=== PATIENT | female | born 1955 | race Two or more races ===

== ENCOUNTER 2020-03-28 14:50 | Outpatient (CLI) | payer OTHER ==
[~2020-03-28 14:50] MED LIST: CARDIZEM30 MG; LISINOPRIL20 MG; PEPCID40 MG PO; PHENERGAN25 MG PO
== END 2020-03-28 15:09 | disposition home or self-care (01) ==
LOC: MAMO-SONO 14:50
PROVIDERS: ATTEND Obstetrics & Gynecology Gynecology
DX: Z12.31 Encounter for screening mammogram for malignant neoplasm of breast (principal); N60.19 Diffuse cystic mastopathy of unspecified breast; N64.4 Mastodynia; N64.59 Other signs and symptoms in breast

== ENCOUNTER → 2020-12-29 | Emergency (ER) | payer OTHER ==
[~2020-12-29] VITALS: Ht 167.6 cm; Wt 80.7 kg
[~2020-12-29] MED LIST changes: +VALSARTAN160 MG PO
== END | disposition home or self-care (01) ==
LOC: ER 12:15
DX: R21 Rash and other nonspecific skin eruption (principal); T78.49XA Other allergy, initial encounter; X58.XXXA Exposure to other specified factors, initial encounter

== ENCOUNTER 2021-08-27 13:42 | Emergency (ER) | payer OTHER ==
[~2021-08-27] VITALS: Ht 167.6 cm; Wt 77.1 kg
== END 2021-08-27 20:34 | disposition home or self-care (01) ==
LOC: ER 13:42
DX: R53.83 Other fatigue (principal); I10 Essential (primary) hypertension; Z20.822 Contact with and (suspected) exposure to COVID-19

== ENCOUNTER 2021-08-30 19:32 | Emergency (ER) | payer OTHER ==
[~2021-08-30] VITALS: Ht 167.6 cm; Wt 75.3 kg
[2021-08-30] MEDS ORDERED: HYDROCHLOROTH12.5 MG PO (20:08)
== END 2021-08-30 20:30 | disposition home or self-care (01) ==
LOC: ER 19:32
DX: R10.13 Epigastric pain (principal)

== ENCOUNTER 2021-10-25 22:45 | Emergency (ER) | payer OTHER ==
[~2021-10-25] VITALS: Ht 167.6 cm; Wt 77.1 kg
[~2021-10-25 22:45] MED LIST changes: +HYDROCHLOROTH12.5 MG PO
== END 2021-10-25 23:37 | disposition home or self-care (01) ==
LOC: ER 22:45
DX: U09.9 Post COVID-19 condition, unspecified (principal); F41.9 Anxiety disorder, unspecified; Z88.5 Allergy status to narcotic agent; Z88.2 Allergy status to sulfonamides; Z88.8 Allergy status to other drugs, medicaments and biological substances; I10 Essential (primary) hypertension

== ENCOUNTER 2022-08-07 10:42 | Outpatient (CLI) | payer OTHER ==
[~2022-08-07 10:42] MED LIST changes: +TOPROL XL25 M1
== END 2022-08-07 10:57 | disposition home or self-care (01) ==
LOC: MAMO-SONO 10:42
PROVIDERS: ATTEND Obstetrics & Gynecology Gynecology
DX: R92.2 Inconclusive mammogram (principal); Z80.3 Family history of malignant neoplasm of breast; Z78.0 Asymptomatic menopausal state

== ENCOUNTER 2022-10-02 13:40 | Outpatient (CLI) | payer OTHER | END 2022-10-02 13:48 | disposition home or self-care (01) | LOC: RAD 13:40 | DX: M54.2 Cervicalgia (principal) ==

== ENCOUNTER 2024-09-19 05:55 | Emergency (ER) | payer OTHER ==
[~2024-09-19] VITALS: Ht 167.6 cm; Wt 81.6 kg
[2024-09-19] MEDS ORDERED: LOSARTAN/HYDROCHLOROTHIAZIDE 1 TAB TABLET PO ONE (08:45)
[2024-09-19] MEDS ORDERED: ACETAMINOPHEN 500 MG GEL..CAP PO ONE ×2 (09:00→09:05)
== END 2024-09-19 12:49 | disposition home or self-care (01) ==
LOC: ER 05:57
DX: S09.8XXA Other specified injuries of head, initial encounter (principal); W19.XXXA Unspecified fall, initial encounter; Y93.89 Activity, other specified; Y92.098 Other place in other non-institutional residence as the place of occurrence of the external cause; Y99.8 Other external cause status; I10 Essential (primary) hypertension; Z88.2 Allergy status to sulfonamides; Z88.5 Allergy status to narcotic agent; Z88.8 Allergy status to other drugs, medicaments and biological substances

== ENCOUNTER 2024-09-30 06:23 | Day surgery (SDC) | payer OTHER ==
[2024-09-28 12:59] VITALS: BP 134/90
[~2024-09-30] VITALS: Ht 167.6 cm; Wt 81.6 kg
[~2024-09-30 06:23] MED LIST changes: +CLONAZEPAM0.5 MG PO
[2024-09-30] MEDS ORDERED: CEFAZOLIN SODIUM 1,000 MG VIAL ONE (09:34)
[2024-09-30] MEDS ORDERED: CHLORHEXIDINE GLUCONATE 120 ML BOTTLE TOP ONE (11:26)
[2024-09-30] MEDS ORDERED: DEXAMETHASONE SODIUM PHOSPHATE 4 MG/ML VIAL ONE (12:21)
[2024-09-30] MEDS ORDERED: DEXAMETHASONE SODIUM PHOSPHATE 4 MG/ML VIAL IV ONE (12:30)
[2024-09-30] MEDS ORDERED: DIPHENHYDRAMINE HCL 50 MG/ML VIAL 1ML ONE (13:52)
[2024-09-30] MEDS ORDERED: MORPHINE SULFATE 4 MG/ML VIAL IV ONE ×2 (14:40→15:10)
== END 2024-09-30 16:30 | disposition home or self-care (01) ==
LOC: CIR.AMB 06:23
PROVIDERS: ATTEND Surgery
DX: D48.61 Neoplasm of uncertain behavior of right breast (principal); D24.1 Benign neoplasm of right breast; N60.81 Other benign mammary dysplasias of right breast; R92.1 Mammographic calcification found on diagnostic imaging of breast; I10 Essential (primary) hypertension; K59.00 Constipation, unspecified; M19.90 Unspecified osteoarthritis, unspecified site; J32.9 Chronic sinusitis, unspecified; Z88.2 Allergy status to sulfonamides; Z88.6 Allergy status to analgesic agent

== ENCOUNTER 2025-07-14 21:56 | Emergency (ER) | payer OTHER ==
[~2025-07-14] VITALS: Ht 167.6 cm; Wt 79.8 kg
[2025-07-14] MEDS ORDERED: IPRATROPIUM BROMIDE 0.5 MG/2.5 ML AMPUL.NEB IH ONE (23:45)
[2025-07-14] MEDS ORDERED: DEXAMETHASONE SODIUM PHOSPHATE 4 MG/ML VIAL IM ONE (23:45)
[2025-07-14] MEDS ORDERED: FAMOTIDINE/PF 20 MG/2 ML VIAL IV ONE (23:45)
[2025-07-15 00:45] LABS: BASO % 0.6 % (0.1-1.2); EOS # 0.02 (0.04-0.54); EOS % 0.4 % (0.7-7.0); LYMPH # 0.65 (1.18-3.74); LYMPH % 12.6 % (19.3-53.1); MEAN PLATELET VOLUME 9.40 fl (9.4-12.4); MONO # 0.48 (0.24-0.82); MONO % 9.3 % (4.7-12.5); NEUT # 3.95 (1.56-6.13); NEUT % 76.9 % (34.0-71.1); RED CELL DISTRIBUTION WIDTH 11.9 % (11.6-14.4)
[2025-07-15 00:57] LABS: ERYTHROCYTE SEDIMENTATION RATE 35 mm/hr (0-30)
[2025-07-15] MEDS ORDERED: ONDANSETRON HCL 2 MG/ML VIAL IV ONE (01:00)
[2025-07-15 01:09] LABS: ALT/SGPT 85.0 U/L (12-78); AST/SGOT 50.0 U/L (15-37); BILIRUBIN TOTAL 0.39 mg/dL (0.3-1.2); BUN CREA RATIO 18.0 (7.0-25.0); CREATININE SERUM 0.61 mg/dL (0.55-1.02); GFR 96.68; GLOBULINA 3.3 G/DL (2.4-3.5); GLUCOSE FASTING 120.0 mg/dL (65-100); OSMOLALITY SERUM 271.0 MOSM/KG (275-295)
[2025-07-15 01:33] LABS: COVID-19 AG NEGATIVE (NEGATIVE)
== END 2025-07-15 02:46 | disposition home or self-care (01) ==
LOC: ER 21:57
PROVIDERS: Student in an Organized Health Care Education/Training Program
DX: J10.1 Influenza due to other identified influenza virus with other respiratory manifestations (principal); Z20.822 Contact with and (suspected) exposure to COVID-19; I10 Essential (primary) hypertension; Z88.2 Allergy status to sulfonamides; Z88.8 Allergy status to other drugs, medicaments and biological substances
CPT/HCPCS: 36415; 71046; 82803; 94640; 96365; 96372; 99283; J1100; J2405; J3490